=== PATIENT | male | born 1970 | race Caucasian/White ===

== ENCOUNTER 2020-05-25 01:31 | Emergency (ER) | payer BC ==
--- NOTE | 2020-05-25 02:01 | EDM.PDOC ---
ED HPI GENERAL MEDICAL PROBLEM - General Chief Complaint: Back Pain or Injury Stated Complaint: WOKE UP WITH PAIN BETWEEN SHOULDER BLADES Time Seen by Provider: 05/25/20 01:36 Source of Information: Reports: Patient, Family History Limitations: Reports: No Limitations - History of Present Illness INITIAL COMMENTS - FREE TEXT/NARRATIVE: This is a 49-year-old male. He went to bed earlier this evening and awoke around 12:30 AM. His dog had fallen asleep on the bed as well and he got out of bed to put the dog in the kennel but did not have to lift the dog. When he got back into bed he noted he had a aching soreness into his neck and his shoulders and and the upper back area. This aching and soreness he just could not get comfortable. Had not slept wrong when he was sleeping and his pillow was the right height. He could not really change position or anything to feel better just sort of a constant throbbing. So he comes to the ER for evaluation. He has no history of any recent illnesses colds or coughs. He does not do any particular heavy lifting or work he basically sat at a desk using a mouse all day yesterday. Does feel somewhat better sitting at a slanted angle in the hospital bed. Upper Back Pain Score (Numeric/FACES): 2 - Related Data Allergies Allergy/AdvReac Type Severity Reaction Status Date / Time No Known Allergies Allergy Verified 05/25/20 01:43 Past Medical History HEENT History: Reports: Cataract Cardiovascular History: Reports: High Cholesterol Musculoskeletal History: Reports: Fracture Other Musculoskeletal History: Fx R arm when he was a kid - Infectious Disease History Infectious Disease History: Reports: Novel Coronavirus - Past Surgical History GI Surgical History: Reports: Hernia, Inguinal, Hernia Repair/Other Male Surgical History: Reports: Vasectomy Social & Family History - Tobacco Use Tobacco Use Status *Q: Never Tobacco User - Caffeine Use Caffeine Use: Reports: Coffee - Recreational Drug Use Recreational Drug Use: No ED ROS GENERAL - Review of Systems Review Of Systems: See Below Constitutional: Denies: Fever, Chills HEENT: Reports: No Symptoms Respiratory: Denies: Shortness of Breath, Cough Cardiovascular: Reports: No Symptoms Endocrine: Reports: No Symptoms GI/Abdominal: Denies: Abdominal Pain, Constipation, Diarrhea, Nausea, Vomiting : Reports: No Symptoms Musculoskeletal: Reports: Neck Pain, Back Pain Skin: Reports: No Symptoms Neurological: Reports: No Symptoms Psychiatric: Reports: No Symptoms Hematologic/Lymphatic: Reports: No Symptoms ED EXAM, UPPER BACK/NECK PAIN - Physical Exam Exam: See Below Exam Limited By: No Limitations General Appearance: Alert, WD/WN, No Apparent Distress Eye Exam: Bilateral Eye: Normal Inspection Ears Exam: Normal External Exam Nose Exam: Normal Inspection Throat/Mouth Exam: Normal Voice, No Airway Compromise Head Exam: Atraumatic, Normocephalic Neck Exam: Non-Tender, Full Range of Motion, Normal Alignment Cardiovascular/Respiratory: Regular Rate, Rhythm, Normal Breath Sounds, No Respiratory Distress GI/Abdominal: Soft Back Exam: Normal Inspection, Full Range of Motion, Other (There is no palpable tenderness in the paraspinal muscles or the midline spine or thoracic spine, no lumbar symptoms.) Extremities: Normal Inspection, Normal Range of Motion Neurologic: No Motor/Sensory Deficits, Alert, Normal Mood/Affect, Oriented x 3 Psychiatric: Normal Affect, Normal Mood Skin Exam: Normal Color, Warm/Dry #1 Interpretation EKG Date: 05/25/20 Time: 02:20 EKG Interpretation Comments: EKG shows a normal sinus rhythm rate of 87 there are no acute ST or T wave changes and no ischemia noted Course - Vital Signs Last Recorded V/S: Last Vital Signs Temp 96.5 F L 05/25/20 01:38 Pulse 94 05/25/20 01:38 Resp 20 05/25/20 01:38 BP 149/93 H 05/25/20 01:38 Pulse Ox 100 05/25/20 01:38 - Orders/Labs/Meds Orders: Active Orders 24 hr Category Date Time Status EKG 12 Lead [EKG Documentation Completion] [RC] STAT Care 05/25/20 01:56 Active CXR [Chest 1V Frontal] [CR] Stat Exams 05/25/20 01:56 Taken Labs: Laboratory Tests 05/25/20 05/25/20 Range/Units 02:08 02:08 WBC 9.41 H (4.23-9.07) K/mm3 RBC 5.02 (4.63-6.08) M/mm3 Hgb 15.2 (13.7-17.5) gm/dl Hct 44.6 (40.1-51.0) % MCV 88.8 (79.0-92.2) fl MCH 30.3 (25.7-32.2) pg MCHC 34.1 (32.2-35.5) g/dl RDW Std Deviation 42.1 (35.1-43.9) fL Plt Count 248 (163-337) K/mm3 MPV 9.8 (9.4-12.3) fl Neut % (Auto) 57.5 (34.0-67.9) % Lymph % (Auto) 31.5 (21.8-53.1) % [place] % (Auto) 9.1 (5.3-12.2) % Eos % (Auto) 1.4 (0.8-7.0) Baso % (Auto) 0.3 (0.1-1.2) % Neut # (Auto) 5.41 H (1.78-5.38) K/mm3 Lymph # (Auto) 2.96 (1.32-3.57) K/mm3 [place] # (Auto) 0.86 H (0.30-0.82) K/mm3 Eos # (Auto) 0.13 (0.04-0.54) K/mm3 Baso # (Auto) 0.03 (0.01-0.08) K/mm3 Sodium 140 (136-145) mEq/L Potassium 3.7 (3.5-5.1) mEq/L Chloride 103 (98-107) mEq/L Carbon Dioxide 24 (21-32) mEq/L Anion Gap 16.7 H (5-15) BUN 16 (7-18) mg/dL Creatinine 1.0 (0.7-1.3) mg/dL Est Cr Clr Drug Dosing 90.24 mL/min Estimated GFR (MDRD) > 60 (>60) mL/min BUN/Creatinine Ratio 16.0 (14-18) Glucose 177 H (74-106) mg/dL Calcium 8.3 L (8.5-10.1) mg/dL Total Bilirubin 0.3 (0.2-1.0) mg/dL AST 31 (15-37) U/L ALT 71 H (16-63) U/L Alkaline Phosphatase 100 (46-116) U/L Troponin I < 0.017 (0.00-0.056) ng/mL Total Protein 6.8 (6.4-8.2) g/dl Albumin 3.6 (3.4-5.0) g/dl Globulin 3.2 gm/dL Albumin/Globulin Ratio 1.1 (1-2) - Radiology Interpretation Free Text/Narrative:: Chest x-ray does not show any acute changes, no widened mediastinum - Re-Assessments/Exams Free Text/Narrative Re-Assessment/Exam: 05/25/20 03:08 States it was feeling better but since he has been sitting in 1 position for a while its is a little more sore than it was when it got better. I explained to him that the blood work the chest x-ray the EKG all does not show anything acute. At this time I am not going to do a CT scan of his chest however I explained to him and his that if things get markedly worse he needs to come back and get a CT scan of his chest. In the meantime I encouraged him to take some Advil use ice or heat to his upper back for comfort. Departure - Departure Time of Disposition: 03:09 Disposition: Home, Self-Care 01 Condition: Good Clinical Impression: Upper back pain Thoracic myofascial strain Qualifiers: Encounter type: initial encounter Qualified Code(s): S29.019A - Strain of muscle and tendon of unspecified wall of thorax, initial encounter - Discharge Information *PRESCRIPTION DRUG MONITORING PROGRAM REVIEWED*: No *COPY OF PRESCRIPTION DRUG MONITORING REPORT IN PATIENT DAVID: No Instructions: Thoracic Strain, [id number] Referrals: West Michel MD [Primary Care Provider] - Forms: ED Department Discharge Additional Instructions: When you get home, take Advil at least 400 mg to help with the upper back sorene ss, use ice to the back or heat whatever feels better, make sure you feel comfortable when you are lying down in bed and do not be in any sort of twisting positions because that might aggravate your upper back, if this markedly gets worse you need to return to the ER for reevaluation and possible CT scan of your chest, follow-up with your family doctor this coming week. Sepsis Event Note (ED) - Evaluation Sepsis Screening Result: No Definite Risk - Focused Exam Vital Signs: Vital Signs Temp Pulse Resp BP Pulse Ox 05/25/20 01:38 96.5 F L 94 20 149/93 H 100 - My Orders Last 24 Hours: My Active Orders 05/25/20 01:56 EKG 12 Lead [EKG Documentation Completion] [RC] STAT CXR [Chest 1V Frontal] [CR] Stat - Assessment/Plan Last 24 Hours: My Active Orders 05/25/20 01:56 EKG 12 Lead [EKG Documentation Completion] [RC] STAT CXR [Chest 1V Frontal] [CR] Stat
--- NOTE | 2020-05-26 11:12 | CR ---
Chest: Portable view of the chest was obtained. Comparison: No prior chest imaging is available. Heart size and mediastinum are normal. Lungs are clear with no acute parenchymal change. Bony structures are grossly intact. Impression: 1. Nothing acute is seen on portable chest x-ray. Diagnostic code #1
== END 2020-05-25 03:18 | disposition home or self-care (01) ==
LOC: JD.ED 01:31
DX: S29.012A Strain of muscle and tendon of back wall of thorax, initial encounter (principal); W06.XXXA Fall from bed, initial encounter
CPT/HCPCS: 36415; 71045; 71045-26; 80053; 84484; 85025; 93005; 93010; 99283; 99284-25

== ENCOUNTER 2024-01-18 17:18 | Emergency (ER) | payer BC ==
[2024-01-18 21:33] LABS: APPEARANCE,URINE CLEAR (Clear); BILIRUBIN,URINE NEGATIVE (Negative); COLOR,URINE YELLOW (Yellow); GLUCOSE,URINE NEGATIVE (Negative); KETONES,URINE 3+ (Negative); LEUKOCYTE ESTERASE,URINE NEGATIVE (Negative); NITRITE,URINE NEGATIVE (Negative); OCCULT BLOOD,URINE NEGATIVE (Negative); PROTEIN,URINE TRACE (Negative); UROBILINOGEN,URINE 0.2 (0.2-1.0)
[2024-01-18 21:53] LABS: BACTERIA,URINE FEW /hpf (FEW); MUCUS,URINE FEW /hpf (FEW); RBC,URINE 0-5 /hpf (0-5); SQUAMOUS EPITHELIAL CELLS,UR 0-5 /hpf (0-5); WBC,URINE 0-5 /hpf (0-5)
[2024-01-18] MEDS: Ketorolac 60 MG/2 ML SDV IM ONE (21:53)
== END 2024-01-18 22:20 | disposition home or self-care (01) ==
LOC: JD.ED 17:18
DX: S39.012A Strain of muscle, fascia and tendon of lower back, initial encounter (principal); Z86.16 Personal history of COVID-19; X50.9XXA Other and unspecified overexertion or strenuous movements or postures, initial encounter
CPT/HCPCS: 81001; 96372; 99283; J1885